=== PATIENT | male | born 1950 | race African-American/Black ===

== ENCOUNTER 2018-01-04 08:52 | Inpatient (IN) ==
[2018-01-04] MEDS ORDERED: ALBUTEROL/IPRATROPIUM 3 ML NEB RESP TX STA (09:17)
[2018-01-04 09:36] LABS: Basophils % 0.3 % (0.0-0.8); Hematocrit 43.2 VOL% (42.0-52.0); Hemoglobin 14.5 GM/DL (14.0-18.0); Immature Granulocytes % 0.7 %; Lymphocytes # 0.5 10*3/uL (1.4-4.0); Lymphocytes % 3.6 % (21.2-54.2); Mean Corpuscular HGB Conc 33.6 GM/DL (32-36); Mean Corpuscular Hemoglobin 27 PG (27-34); Mean Corpuscular Volume 81.4 FL (87-102); Mean Platelet Volume 9.1 FL (9.6-12.0); Monocytes # 0.9 10*3/uL (0.11-0.8); Monocytes % 6.9 % (1.7-12.7); Neutrophils % 88.5 % (38.7-73.9); Platelet Count 176 T/CUMM (130-400); Red Blood Count 5.31 MC/CUMM (3.8-5.5); Red Cell Distribution Width 14.2 % (9.3-17.3); White Blood Count 13.5 T/CUMM (4-12)
[2018-01-04 09:55] LABS: Band Neutrophils 1 % (0-10); Hypochromasia 1+; Lymphocytes 3 % (20-55); Microcytosis Slight; Platelet Estimate Normal; Segmented Neutrophils 91 % (50-85); Total Cells Counted 100
[2018-01-04 10:13] LABS: Albumin 3.3 G/DL (3.4-5.0); Bilirubin,Total 0.7 MG/DL (0.2-1.0); Calcium 8.6 MG/DL (8.5-10.1); Osmolality,Calculated 270.4 MOS/KG (273-304); Potassium 3.5 MMOL/L (3.5-5.1); Total Protein 7.9 G/DL (6.4-8.3); Troponin I Only 0.019 NG/ML (0.00-0.045)
[2018-01-04] MEDS ORDERED: LEVOFLOXACIN INJ 750 MG in PREMIX 1 EACH IV STA (10:25)
[2018-01-04] MEDS ORDERED: DOCUSATE SODIUM 100 MG CAPSULE PO PRN (11:20)
[2018-01-04] MEDS ORDERED: ONDANSETRON 4 MG/2 ML VIAL IV PRN (11:20)
[2018-01-04] MEDS ORDERED: diphenhydrAMINE CAP 25 MG CAPSULE PO PRN (11:20)
[2018-01-04] MEDS ORDERED: guaiFENesin/DM ER 600-30 MG TABLET PO PRN (11:20)
[2018-01-04] MEDS ORDERED: ALBUTEROL 2.5 MG/3 ML NEB RESP TX PRN (11:23)
[2018-01-04] MEDS: PANTOPRAZOLE 40 MG TABLET PO SCH (13:28)
[2018-01-04] MEDS: QUINAPRIL 20 MG TABLET PO SCH ×2 (13:28→20:44)
[2018-01-04] MEDS: ACETAMINOPHEN 325 MG TABLET PO PRN ×2 (13:29→20:44)
[2018-01-04] MEDS: TAMSULOSIN 0.4 MG CAPSULE PO SCH (13:29)
[2018-01-04] MEDS: amLODIPine 10 MG TABLET PO SCH (13:29)
[2018-01-04] MEDS: ALBUTEROL/IPRATROPIUM 3 ML NEB RESP TX SCH (19:13)
[2018-01-04] MEDS: MAGNESIUM OXIDE 400 MG TABLET PO SCH (20:44)
[2018-01-04] MEDS: ENOXAPARIN 40 MG/0.4 ML SYRINGE SUBCUT SCH (20:44)
[2018-01-05] MEDS: ALBUTEROL/IPRATROPIUM 3 ML NEB RESP TX SCH ×5 (00:16→23:57)
[2018-01-05 05:18] LABS: Basophils % 0.1 % (0.0-0.8); Eosinophils % 0.1 % (0.00-10.9); Hematocrit 40.1 VOL% (42.0-52.0); Hemoglobin 13.6 GM/DL (14.0-18.0); Immature Granulocytes % 0.6 %; Immature Granulocytes Absolute 0.06 #; Lymphocytes # 0.5 10*3/uL (1.4-4.0); Mean Corpuscular HGB Conc 33.9 GM/DL (32-36); Mean Corpuscular Hemoglobin 27 PG (27-34); Mean Corpuscular Volume 78.9 FL (87-102); Mean Platelet Volume 9.2 FL (9.6-12.0); Monocytes # 0.9 10*3/uL (0.11-0.8); Monocytes % 9.3 % (1.7-12.7); Neutrophils # 8.1 10*3/uL (1.4-7.4); Neutrophils % 84.9 % (38.7-73.9); Platelet Count 173 T/CUMM (130-400); Red Blood Count 5.08 MC/CUMM (3.8-5.5); Red Cell Distribution Width 14.2 % (9.3-17.3); White Blood Count 9.5 T/CUMM (4-12)
[2018-01-05 05:55] LABS: Calcium 8.5 MG/DL (8.5-10.1); Osmolality,Calculated 270.2 MOS/KG (273-304); Potassium 3.4 MMOL/L (3.5-5.1); Risk Ratio 4.31; Thyroid Stimulating Hormone 0.39 uIU/ml (0.358-3.74); VLDL CHOLESTEROL 15.4 MG/DL
[2018-01-05] MEDS: ACETAMINOPHEN 325 MG TABLET PO PRN ×3 (08:35→18:30)
[2018-01-05] MEDS: QUINAPRIL 20 MG TABLET PO SCH ×2 (08:35→20:54)
[2018-01-05] MEDS: TAMSULOSIN 0.4 MG CAPSULE PO SCH (08:36)
[2018-01-05] MEDS: PANTOPRAZOLE 40 MG TABLET PO SCH (08:36)
[2018-01-05] MEDS: amLODIPine 10 MG TABLET PO SCH (08:36)
[2018-01-05] MEDS: LEVOFLOXACIN INJ 750 MG in PREMIX 1 EACH IV SCH (08:39)
[2018-01-05] MEDS: POTASSIUM CHLORIDE 20 MEQ TABLET PO SCH ×3 (11:07→18:30)
[2018-01-05] MEDS: SODIUM CHLORIDE 0.9% 1,000 ML IV SCH (11:07)
[2018-01-05] MEDS: DILTIAZEM INJ 100 MG in SODIUM CHLORIDE 0.9% 100 ML IV SCH (18:53)
[2018-01-05] MEDS ORDERED: METOPROLOL TARTRATE 5 MG/5 ML VIAL IV ONE ×2 (19:13→19:27)
[2018-01-05] MEDS: ENOXAPARIN 40 MG/0.4 ML SYRINGE SUBCUT SCH (20:54)
[2018-01-05] MEDS: MAGNESIUM OXIDE 400 MG TABLET PO SCH (20:55)
[2018-01-06] MEDS: ALBUTEROL/IPRATROPIUM 3 ML NEB RESP TX SCH ×4 (00:09→19:47)
[2018-01-06] MEDS: SODIUM CHLORIDE 0.9% 1,000 ML IV SCH ×3 (01:00→14:24)
[2018-01-06] MEDS: DILTIAZEM INJ 100 MG in SODIUM CHLORIDE 0.9% 100 ML IV SCH ×3 (03:38→21:45)
[2018-01-06 05:35] LABS: Basophils % 0.2 % (0.0-0.8); Eosinophils # 0.1 10*3/uL (0.0-0.87); Eosinophils % 0.9 % (0.00-10.9); Hematocrit 38.2 VOL% (42.0-52.0); Immature Granulocytes % 0.6 %; Immature Granulocytes Absolute 0.05 #; Lymphocytes # 0.5 10*3/uL (1.4-4.0); Lymphocytes % 5.5 % (21.2-54.2); Mean Corpuscular Hemoglobin 27 PG (27-34); Mean Corpuscular Volume 79.4 FL (87-102); Mean Platelet Volume 9.8 FL (9.6-12.0); Monocytes # 1.1 10*3/uL (0.11-0.8); Monocytes % 12.5 % (1.7-12.7); Neutrophils # 7.1 10*3/uL (1.4-7.4); Neutrophils % 80.3 % (38.7-73.9); Platelet Count 190 T/CUMM (130-400); Red Blood Count 4.81 MC/CUMM (3.8-5.5); Red Cell Distribution Width 14.5 % (9.3-17.3); White Blood Count 8.8 T/CUMM (4-12)
[2018-01-06 06:05] LABS: Calcium 8.1 MG/DL (8.5-10.1); Osmolality,Calculated 276.7 MOS/KG (273-304); Potassium 3.8 MMOL/L (3.5-5.1)
[2018-01-06] MEDS: QUINAPRIL 20 MG TABLET PO SCH (08:35)
[2018-01-06] MEDS: TAMSULOSIN 0.4 MG CAPSULE PO SCH (08:36)
[2018-01-06] MEDS: amLODIPine 10 MG TABLET PO SCH (08:36)
[2018-01-06] MEDS: PANTOPRAZOLE 40 MG TABLET PO SCH (08:36)
[2018-01-06] MEDS: VERAPAMIL SR 180 MG TABLET PO SCH (20:39)
[2018-01-06] MEDS: MAGNESIUM OXIDE 400 MG TABLET PO SCH (20:39)
[2018-01-06] MEDS: APIXABAN 5 MG TABLET PO SCH (20:40)
[2018-01-07] MEDS: ALBUTEROL/IPRATROPIUM 3 ML NEB RESP TX SCH ×4 (01:09→22:12)
[2018-01-07] MEDS: SODIUM CHLORIDE 0.9% 1,000 ML IV SCH ×2 (03:22→17:05)
[2018-01-07 05:34] LABS: Basophils % 0.2 % (0.0-0.8); Eosinophils # 0.1 10*3/uL (0.0-0.87); Eosinophils % 0.7 % (0.00-10.9); Hematocrit 38.6 VOL% (42.0-52.0); Hemoglobin 13.3 GM/DL (14.0-18.0); Immature Granulocytes % 0.6 %; Immature Granulocytes Absolute 0.06 #; Lymphocytes # 0.6 10*3/uL (1.4-4.0); Lymphocytes % 5.8 % (21.2-54.2); Mean Corpuscular HGB Conc 34.5 GM/DL (32-36); Mean Corpuscular Hemoglobin 27 PG (27-34); Mean Corpuscular Volume 79.1 FL (87-102); Mean Platelet Volume 9.1 FL (9.6-12.0); Monocytes # 1.1 10*3/uL (0.11-0.8); Monocytes % 10.7 % (1.7-12.7); Neutrophils # 8.6 10*3/uL (1.4-7.4); Platelet Count 206 T/CUMM (130-400); Red Blood Count 4.88 MC/CUMM (3.8-5.5); Red Cell Distribution Width 14.7 % (9.3-17.3); White Blood Count 10.4 T/CUMM (4-12)
[2018-01-07 05:58] LABS: Calcium 8.4 MG/DL (8.5-10.1); Osmolality,Calculated 278.4 MOS/KG (273-304); Potassium 3.8 MMOL/L (3.5-5.1)
[2018-01-07] MEDS: VERAPAMIL SR 180 MG TABLET PO SCH ×2 (08:28→21:41)
[2018-01-07] MEDS: VALSARTAN 160 MG TABLET PO SCH (08:28)
[2018-01-07] MEDS: PANTOPRAZOLE 40 MG TABLET PO SCH (08:28)
[2018-01-07] MEDS: TAMSULOSIN 0.4 MG CAPSULE PO SCH (08:28)
[2018-01-07] MEDS: APIXABAN 5 MG TABLET PO SCH ×2 (08:29→21:41)
[2018-01-07] MEDS: LEVOFLOXACIN INJ 750 MG in PREMIX 1 EACH IV SCH (08:29)
[2018-01-07] MEDS ORDERED: POTASSIUM CHLORIDE 20 MEQ TABLET PO PRN (11:31)
[2018-01-07] MEDS: methylPREDNISolone SOD SUC 40 MG/1 ML VIAL IV SCH ×2 (15:18→21:41)
[2018-01-07] MEDS: ASCORBIC ACID 500 MG TABLET PO SCH (21:40)
[2018-01-07] MEDS: FLUTICASONE/SALMETEROL 250-50 DISKUS 14 DOSE INH SCH (21:40)
[2018-01-07] MEDS: MAGNESIUM OXIDE 400 MG TABLET PO SCH (21:41)
[2018-01-08] MEDS: ALBUTEROL/IPRATROPIUM 3 ML NEB RESP TX SCH ×4 (00:25→20:01)
[2018-01-08] MEDS: methylPREDNISolone SOD SUC 40 MG/1 ML VIAL IV SCH ×4 (03:32→21:30)
[2018-01-08 05:26] LABS: Basophils % 0.1 % (0.0-0.8); Hematocrit 44.2 VOL% (42.0-52.0); Hemoglobin 14.4 GM/DL (14.0-18.0); Immature Granulocytes % 0.7 %; Immature Granulocytes Absolute 0.08 #; Lymphocytes # 0.5 10*3/uL (1.4-4.0); Lymphocytes % 4.1 % (21.2-54.2); Mean Corpuscular HGB Conc 32.6 GM/DL (32-36); Mean Corpuscular Hemoglobin 26 PG (27-34); Mean Corpuscular Volume 81.1 FL (87-102); Mean Platelet Volume 9.4 FL (9.6-12.0); Monocytes # 0.2 10*3/uL (0.11-0.8); Monocytes % 1.4 % (1.7-12.7); Neutrophils # 11.4 10*3/uL (1.4-7.4); Neutrophils % 93.7 % (38.7-73.9); Platelet Count 270 T/CUMM (130-400); Red Blood Count 5.45 MC/CUMM (3.8-5.5); Red Cell Distribution Width 14.7 % (9.3-17.3); White Blood Count 12.2 T/CUMM (4-12)
[2018-01-08 05:47] LABS: Calcium 9.5 MG/DL (8.5-10.1); Potassium 3.8 MMOL/L (3.5-5.1)
[2018-01-08 06:03] LABS: Lymphocytes 1 % (20-55); Segmented Neutrophils 97 % (50-85); Total Cells Counted 100
[2018-01-08 06:04] LABS: Platelet Estimate Adequate; Target Cells Slight
[2018-01-08] MEDS: TAMSULOSIN 0.4 MG CAPSULE PO SCH (08:45)
[2018-01-08] MEDS: ASCORBIC ACID 500 MG TABLET PO SCH ×2 (08:45→21:30)
[2018-01-08] MEDS: VALSARTAN 160 MG TABLET PO SCH (08:45)
[2018-01-08] MEDS: FLUTICASONE/SALMETEROL 250-50 DISKUS 14 DOSE INH SCH ×2 (08:46→21:26)
[2018-01-08] MEDS: APIXABAN 5 MG TABLET PO SCH ×2 (08:46→21:29)
[2018-01-08] MEDS: VERAPAMIL SR 180 MG TABLET PO SCH ×2 (08:49→21:29)
[2018-01-08] MEDS: PANTOPRAZOLE 40 MG TABLET PO SCH (10:40)
[2018-01-08] MEDS: LEVOFLOXACIN 750 MG TABLET PO SCH (16:20)
[2018-01-08] MEDS: MAGNESIUM OXIDE 400 MG TABLET PO SCH (21:29)
[2018-01-09] MEDS: ALBUTEROL/IPRATROPIUM 3 ML NEB RESP TX SCH ×3 (00:31→12:52)
[2018-01-09] MEDS: methylPREDNISolone SOD SUC 40 MG/1 ML VIAL IV SCH ×3 (03:40→15:15)
[2018-01-09] MEDS: ASCORBIC ACID 500 MG TABLET PO SCH (08:33)
[2018-01-09] MEDS: TAMSULOSIN 0.4 MG CAPSULE PO SCH (08:33)
[2018-01-09] MEDS: APIXABAN 5 MG TABLET PO SCH (08:33)
[2018-01-09] MEDS: VALSARTAN 160 MG TABLET PO SCH (08:34)
[2018-01-09] MEDS: LEVOFLOXACIN 750 MG TABLET PO SCH (08:34)
[2018-01-09] MEDS: PANTOPRAZOLE 40 MG TABLET PO SCH (08:34)
[2018-01-09] MEDS: FLUTICASONE/SALMETEROL 250-50 DISKUS 14 DOSE INH SCH (08:35)
[2018-01-09] MEDS: VERAPAMIL SR 180 MG TABLET PO SCH (08:35)
[2018-01-09 16:16] VITALS: BP 150/86
== END 2018-01-09 15:25 | disposition home or self-care (01) | DRG 194 ==
LOC: N.ED 08:52 → SUATTDRO 11:20 → N.EDINP 11:20 → N.2W 12:34 → N.TELEN 16:32 → N.3E 01-07 17:20
PROVIDERS: ADMIT Internal Medicine; ATTEND Internal Medicine